=== PATIENT | female | born 1990 | race Caucasian/White ===

== ENCOUNTER 2019-05-22 08:19 | Emergency (ER) | payer BC ==
[~2019-05-22] VITALS: Ht 154.9 cm; Wt 54.4 kg
[2019-05-22] MEDS ORDERED: TETRACAINE HCL 0.5% OPHT DROP 2 ML BOTTLE ONE (08:35)
[2019-05-22] MEDS ORDERED: FLUORESCEIN SODIUM 1 MG STRIP ONE ×2 (08:36→09:23)
--- NOTE | 2019-05-22 08:40 | NUR ---
Dr Varghese at the bedside for MSE.
[2019-05-22] MEDS ORDERED: FLUORESCEIN SODIUM 1 MG STRIP OP ONE ×2 (08:45→10:00)
[2019-05-22] MEDS ORDERED: TETRACAINE HCL 0.5% OPHT DROP 2 ML BOTTLE OP ONE (08:45)
[2019-05-22] MEDS ORDERED: METOCLOPRAMIDE HCL 10 MG TABLET ONE (09:51)
[2019-05-22 09:53] VITALS: BP 124/66
--- NOTE | 2019-05-22 09:57 | NUR ---
Patient discharged to home in stable conditon. Written and verbal after care instructions given. Patient verbalizes understanding of instructions.
[2019-05-22] MEDS ORDERED: METOCLOPRAMIDE HCL 10 MG TABLET PO ONE (10:00)
== END 2019-05-22 09:56 | disposition home or self-care (01) ==
LOC: ER 08:19
DX: S05.02XA Injury of conjunctiva and corneal abrasion without foreign body, left eye, initial encounter (principal); X58.XXXA Exposure to other specified factors, initial encounter; Y93.89 Activity, other specified; Y92.89 Other specified places as the place of occurrence of the external cause; Y99.8 Other external cause status
CPT/HCPCS: A4663; J8597